=== PATIENT | female | born 1970 | race Two or more races ===

== ENCOUNTER 2021-10-21 02:40 | Inpatient (IN) | payer MEDICAID ==
[~2021-10-21] VITALS: Ht 160 cm; Wt 159.0 kg
[2021-10-21 04:24] VITALS: BP 137/64
[2021-10-21] MEDS ORDERED: NIFE-79 PO (05:22)
[2021-10-21] MEDS ORDERED: ALLO100T2 PO (05:22)
[2021-10-21] MEDS ORDERED: ATOR40TA71 PO (05:22)
[2021-10-21] MEDS ORDERED: METFORMIN 850 MG PO (05:22)
[2021-10-21] MEDS ORDERED: BECL10.6 IH (05:22)
[2021-10-21] MEDS ORDERED: ALBU8.5H8 IH (05:22)
[2021-10-21] MEDS ORDERED: LOSA-382 PO (05:22)
[2021-10-21] MEDS ORDERED: FURO-151 PO (05:22)
[2021-10-21] MEDS ORDERED: ASPI-1444 PO (05:22)
[2021-10-21] MEDS ORDERED: ALBUTEROL SULFATE HFA 90 MCG/PUFF 8 GM INHALER IH PRN (05:30)
[2021-10-21] MEDS ORDERED: LEVO-72 PO (05:35)
[2021-10-21 07:12] LABS: GLUCOMETER DEV NAME(LOC) 5S.2B; GLUCOSE,POINT OF CARE 119 MG/DL (70-110)
[2021-10-21 08:05] VITALS: BP 138/80
[2021-10-21 08:28] LABS: BASOPHILS % (AUTO) 0.5 % (0.0-2.0); EOSINOPHILS % (AUTO) 1.6 % (1.0-6.0); HEMATOCRIT 42.4 % (36-46); HEMOGLOBIN 14.2 g/dL (12.0-16.0); LYMPHOCYTES # (AUTO) 1.1 K/uL (1.0-4.8); MEAN CORPUSCULAR HEMOGLOBIN 29.4 pg (26.0-34.0); MEAN CORPUSCULAR HGB CONC 33.4 G/dL (31.0-37.0); MEAN CORPUSCULAR VOLUME 88 fL (80-100); MONOCYTES # (AUTO) 0.5 K/uL (0.1-1.0); MONOCYTES % (AUTO) 6.6 % (2.0-9.0); NEUTROPHILS % (AUTO) 77.3 % (40.0-70.0); PLATELET COUNT (AUTO) 191 K/uL (150-450); RED BLOOD CELL COUNT(AUTO) 4.82 MIL/uL (4.00-5.20)
[2021-10-21 08:34] LABS: ANION GAP 1 mmol/L (8-16); CALCIUM, TOTAL 8.9 mg/dL (8.8-10.5); CARBON DIOXIDE 34 mmol/L (22-29); CHLORIDE 102 mmol/L (98-107); CREATININE 0.66 mg/dL (0.60-1.30); GLOMERULAR FILTR. RATE CALC > 60 mL/min (>60); GLUCOSE,RANDOM 119 mg/dL (70-110); POTASSIUM 4.1 mmol/L (3.5-5.1); SODIUM SERUM 137 mmol/L (136-145); UREA NITROGEN, BLOOD 23 mg/dL (7-18)
[2021-10-21 08:40] LABS: ALANINE AMINOTRANSFERASE 28 U/L (12-78); ALBUMIN 3.7 g/dL (3.4-5.0); ALKALINE PHOSPHATASE 84 U/L (46-116); ASPARTATE AMINOTRANSFERASE 20 U/L (15-37); BILIRUBIN,TOTAL 0.8 mg/dL (0.1-1.0); TOTAL PROTEIN, SERUM 7.9 g/dL (6.4-8.2)
[2021-10-21] MEDS ORDERED: LOSARTAN POTASSIUM 50 MG TABLET PO SCH (09:00)
[2021-10-21] MEDS ORDERED: FUROSEMIDE 40 MG TABLET PO SCH (09:00)
[2021-10-21] MEDS ORDERED: NIFEdipine 30 MG ER TABLET PO SCH (09:00)
[2021-10-21] MEDS ORDERED: ASPIRIN 81 MG DR TABLET PO SCH (09:00)
[2021-10-21] MEDS ORDERED: ALLOPURINOL 100 MG TABLET PO SCH (09:00)
[2021-10-21] MEDS ORDERED: BECLOMETHASONE DIPR HFA 40 MCG/PUFF 10.6 GM INHALER IH SCH (09:00)
[2021-10-21] MEDS ORDERED: LEVOFLOXACIN 500 MG TABLET PO SCH (09:00)
[2021-10-21] MEDS ORDERED: ATORVASTATIN CALCIUM 40 MG TABLET PO SCH (09:00)
[2021-10-21 10:47] LABS: COVID AG,FIA SOURCE NASOPHARYNGEAL
== END 2021-10-21 11:50 | disposition left against medical advice (07) | DRG 133 ==
LOC: 5N 02:40
PROVIDERS: ADMIT Internal Medicine; ATTEND Internal Medicine
DX: J96.01 Acute respiratory failure with hypoxia (principal); J45.901 Unspecified asthma with (acute) exacerbation; Z68.44 Body mass index [BMI] 60.0-69.9, adult; E66.01 Morbid (severe) obesity due to excess calories; E11.9 Type 2 diabetes mellitus without complications; E78.5 Hyperlipidemia, unspecified; I10 Essential (primary) hypertension; Z53.29 Procedure and treatment not carried out because of patient's decision for other reasons; Z20.822 Contact with and (suspected) exposure to COVID-19; Z88.0 Allergy status to penicillin
CPT/HCPCS: 80053; 82962; 85025; 99285; J3535